=== PATIENT | female | born 1980 | race American Indian/Alaskan Native ===

== ENCOUNTER 2019-07-15 13:37 | Outpatient (CLI) | payer MEDICAID ==
--- NOTE | 2019-07-17 08:33 | Pulmonary Function Test ---
SPIROMETRY The spirometry, FVC 3.59 liters, which is 90% of the predicted. FEV1 is 2.94 liters, which is 92% of the predicted. FEV1/FVC ratio is 83. FLOW VOLUME LOOP: FEF 25-75% is 3.13 liters per second, which is 100% of the predicted. IMPRESSION: This is a normal pulmonary function test. JOB# [id number] [facility]
== END 2019-07-15 13:38 | disposition home or self-care (01) ==
LOC: PF 13:37
PROVIDERS: ATTEND Surgery
DX: E66.2 Morbid (severe) obesity with alveolar hypoventilation (principal)
CPT/HCPCS: 94010

== ENCOUNTER 2019-09-05 11:16 | Outpatient (CLI) | payer MEDICAID ==
[2019-09-05 11:37] LABS: Basophils # (Auto) 0.1 K/mm3 (0.0-0.1); Basophils % (Auto) 0.9 % (0.0-1.8); Eosinophils # (Auto) 0.1 K/mm3 (0.0-0.4); Eosinophils % (Auto) 1.9 % (0.0-4.3); Hematocrit 43.5 % (30.3-42.9); Hemoglobin 14.1 gm/dl (10.1-14.3); Lymphocytes # (Auto) 2.4 K/mm3 (1.2-5.4); Mean Corpuscular HGB Conc 33 % (30-34); Mean Corpuscular Volume 82 fl (79-97); Monocytes # (Auto) 0.7 K/mm3 (0.0-0.8); Monocytes % (Auto) 10.9 % (0.0-7.3); Platelet Count 191 K/mm3 (140-440); Red Blood Count 5.29 M/mm3 (3.65-5.03); Red Cell Distribution Width 14.2 % (13.2-15.2)
[2019-09-05 12:00] LABS: Alanine Aminotransferase 19 units/L (7-56); BUN/Creatinine Ratio 20; Blood Urea Nitrogen 16 mg/dL (7-17); Calcium 8.9 mg/dL (8.4-10.2); Hemolysis Index 1; LDL Cholesterol,Direct 91 mg/dL (50-130)
[2019-09-05 12:20] LABS: Chol/HDL Ratio 3.27 %; HDL Cholesterol 40 mg/dL (40-59)
== END 2019-09-05 11:17 | disposition home or self-care (01) ==
LOC: LAB 11:16
PROVIDERS: ATTEND Surgery
DX: Z00.00 Encounter for general adult medical examination without abnormal findings (principal); D50.9 Iron deficiency anemia, unspecified; K30 Functional dyspepsia; E61.8 Deficiency of other specified nutrient elements
CPT/HCPCS: 36415; 80053; 80061; 82607; 83036; 84443; 85025

== ENCOUNTER → 2019-11-05 | Outpatient (CLI) | payer MEDICAID | END | disposition home or self-care (01) | LOC: SLR 11:00 | PROVIDERS: ATTEND Otolaryngology | DX: G47.33 Obstructive sleep apnea (adult) (pediatric) (principal) | CPT/HCPCS: G0399 ==

== ENCOUNTER 2019-11-15 07:25 | Day surgery (SDC) | payer MEDICAID ==
[~2019-11-15 07:25] MED LIST: SODIUM CHLORIDE 0.9% 1000 ML 1,000 ML IV SCH
--- NOTE | 2019-11-15 07:55 | Anesthesia Day of Surgery ---
Anesthesia Day of Surgery - Day of Surgery Patient Examined: Yes Patient H&P Reviewed: Yes Patient is NPO: Yes Beta Blockers: No
--- NOTE | 2019-11-15 07:55 | Anesthesia Consultation ---
Anesthesia Consult and Med Hx Date of service: 11/15/19 - Airway Anesthetic Teeth Evaluation: Good ROM Head & Neck: Adequate Mental/Hyoid Distance: Adequate Mallampati Class: Class III Intubation Access Assessment: Possibly Difficult - Pre-Operative Health Status ASA Pre-Surgery Classification: ASA3 Proposed Anesthetic Plan: MAC - Pulmonary Hx Smoking: Yes Hx Sleep Apnea: Yes (on CPAP) - Cardiovascular System Hx Hypertension: Yes Hx Coronary Artery Disease: No Hx Heart Attack/AMI: No Hx Angina: No Hx Percutaneous Transluminal Coronary Angioplasty (PTCA): No Hx Cardia Arrhythmia: No Hx Pacemaker: No Hx Internal Defibrillator: No Hx Valvular Heart Disease: No Hx Heart Murmur: No Hx Peripheral Vascular Disease: No - Central Nervous System Hx Neuromuscular Disorder: No Hx Seizures: No CVA: No Hx Back Pain: No Hx Psychiatric Problems: No - Gastrointestinal Hx Ulcer: No Hx Gastroesophageal Reflux Disease: No - Endocrine Hx Renal Disease: No Hx End Stage Renal Disease: No Hx Cirrhosis: No Hx Liver Disease: No Hx Insulin Dependent Diabetes: No Hx Non-Insulin Dependent Diabetes: No Hx Thyroid Disease: No Hx Hypothyroidism: No Hx Hyperthyroidism: No - Hematic Hx Anemia: No Hx Sickle Cell Disease: No - Other Systems Hx Alcohol Use: Yes Hx Substance Use: No Hx Cancer: No Hx Obesity: Yes
--- NOTE | 2019-11-15 08:23 | Discharge Summary ---
Providers - Providers Date of Admission: 11/15/19 Date of discharge: 11/15/19 Attending physician: JOE ZAVALA MD Primary care physician: FORMING MACHINE OPERATOR Hospitalization Reason for admission: egd Condition: Good Procedures: egd Hospital course: pt had an uneventful egd as part of a pre-op work for bariatric surgery Disposition: DC-01 TO HOME OR SELFCARE Core Measure Documentation - Palliative Care Palliative Care/ Comfort Measures: Not Applicable - Core Measures Any of the following diagnoses?: none Exam - Physical Exam Narrative exam: unchanged from pre-op - Constitutional Vitals: Temp Pulse Resp BP Pulse Ox 97.8 F 65 12 134/87 99 11/15/19 07:58 11/15/19 07:58 11/15/19 07:58 11/15/19 07:58 11/15/19 07:58 Plan Activity: no restrictions Weight Bearing Status: Full Weight Bearing Diet: low carbohydrate Follow up with: BROOKE ROBLES MD [Primary Care Provider] - 7 Days
--- NOTE | 2019-11-15 08:25 | Operative Report ---
Operative Report Operative Report: DATE 11/15/2019 SURGERY: Upper endoscopy with antral biopsy SURGEON: Regan Wang M.D. ULTRASONIC TESTER: n/a PRE OP DX: GERD, morbid obesity POST OP DX: same as pre-op TYPE OF ANESTHESIA: MAC. ESTIMATED BLOOD LOSS: None. COMPLICATIONS: None. SPECIMENS REMOVED: antral mucosal biopsy FINDINGS: 1. Small hiatal hernia. 2. Otherwise, normal esophagus, stomach and first portion of duodenum. INDICATIONS:INDICATION FOR PROCEDURE: Patient is a 39-year-old female with a long history of morbid obesity. She is planned to have a weight loss procedure and is here for preoperative planning EGD. PROCEDURE DETAILS: After consent was reviewed, patient was taken back to the operating room where patient was placed in the left lateral decubitus position and a bite block was placed in the mouth. After a time-out was called, MAC anesthesia was initiated. I then passed the endoscope into her oropharynx, into her esophagus, visualized the entire esophagus, which was all within normal limits. Her Z-line was noted to be regular and about 40cm from the incisors. I then visualized the stomach and the first portion of the duodenum and there were no abnormalities I could clearly visualize. I then retroflexed the scope in the stomach and visualized the hiatus and I could see a small hiatal hernia. A cold biopsy was taken of the antral mucosa to evaluate for h.pylori for comprehensive pre-op for bariatric surgery. I then desufflated the stomach and removed the endoscope. Patient tolerated procedure well and was transferred to recovery room in good and stable condition.
[2019-11-15] MEDS ORDERED: PROPOFOL 200 MG/20 ML VIAL IV ONE (08:30)
--- NOTE | 2019-11-15 08:56 | Post Anesthesia Evaluation ---
- Post Anesthesia Evaluation Patient Participated: Yes Airway Patent: Yes Stable Respiratory Function: Yes Temp > 96.8F: Yes Pain Manageable: Yes Adequeate Hydration: Yes Anesthesia Complications: No
[2019-11-15] MEDS ORDERED: FAMOTIDINE 20 MG/2 ML INJ IV NR (09:00)
[2019-11-15] MEDS ORDERED: LIDOCAINE MPF (2%) 20 MG/1 ML VIAL 5 ML ONE (09:00)
[2019-11-15 09:06] VITALS: BP 124/93
== END 2019-11-15 07:26 | disposition home or self-care (01) ==
LOC: GIO 07:25
PROVIDERS: ATTEND Surgery
DX: K21.9 Gastro-esophageal reflux disease without esophagitis (principal); K44.9 Diaphragmatic hernia without obstruction or gangrene; K29.50 Unspecified chronic gastritis without bleeding; E66.01 Morbid (severe) obesity due to excess calories; B96.81 Helicobacter pylori [H. pylori] as the cause of diseases classified elsewhere; I10 Essential (primary) hypertension; G47.30 Sleep apnea, unspecified; F17.210 Nicotine dependence, cigarettes, uncomplicated; Z72.89 Other problems related to lifestyle; Z68.41 Body mass index [BMI] 40.0-44.9, adult; Z79.899 Other long term (current) drug therapy
CPT/HCPCS: 43239; 81025; 88305; 88342; J2704; J7030

== ENCOUNTER 2019-12-10 11:00 | Outpatient (CLI) | payer MEDICAID | END 2019-12-10 11:01 | disposition home or self-care (01) | LOC: SLR 11:00 | PROVIDERS: ATTEND Otolaryngology | DX: G47.33 Obstructive sleep apnea (adult) (pediatric) (principal); R40.0 Somnolence | CPT/HCPCS: 95811 ==

== ENCOUNTER 2020-01-13 05:44 | Observation (INO) | payer MEDICAID ==
[2020-01-10 10:05] LABS: Basophils % (Auto) 0.9 % (0.0-1.8); Eosinophils # (Auto) 0.1 K/mm3 (0.0-0.4); Eosinophils % (Auto) 1.2 % (0.0-4.3); Hemoglobin 14.1 gm/dl (10.1-14.3); Lymphocytes # (Auto) 1.8 K/mm3 (1.2-5.4); Lymphocytes % (Auto) 32.3 % (13.4-35.0); Mean Corpuscular HGB Conc 33 % (30-34); Mean Corpuscular Volume 82 fl (79-97); Monocytes # (Auto) 0.5 K/mm3 (0.0-0.8); Monocytes % (Auto) 8.8 % (0.0-7.3); Platelet Count 221 K/mm3 (140-440); Red Blood Count 5.23 M/mm3 (3.65-5.03)
--- NOTE | 2020-01-10 10:25 | Anesthesia Consultation ---
Anesthesia Consult and Med Hx Date of service: 01/13/20 - Airway Anesthetic Teeth Evaluation: Good (Missing) ROM Head & Neck: Adequate Mental/Hyoid Distance: Adequate Mallampati Class: Class II Intubation Access Assessment: Probably Good - Pre-Operative Health Status ASA Pre-Surgery Classification: ASA3 Proposed Anesthetic Plan: General - Pulmonary Hx Smoking: Yes (BLACK AND MILDS SINCE AGE 13; QUIT 11/2019) Hx Sleep Apnea: Yes (+CPAP. States she can climb 2FS. PFTs [phone] mt) - Cardiovascular System Hx Hypertension: Yes (SINCE AGE 26. ETT [id number]) Hx Cardia Arrhythmia: No - Central Nervous System Hx Neuromuscular Disorder: No Hx Seizures: No CVA: No Hx Back Pain: No Hx Psychiatric Problems: No - Gastrointestinal Hx Gastroesophageal Reflux Disease: Yes - Endocrine Hx Renal Disease: No Hx End Stage Renal Disease: No Hx Liver Disease: No Hx Insulin Dependent Diabetes: No Hx Non-Insulin Dependent Diabetes: Yes (Borderline) Hx Thyroid Disease: No Hx Hypothyroidism: No Hx Hyperthyroidism: No - Hematic Hx Anemia: No Hx Sickle Cell Disease: No - Other Systems Hx Alcohol Use: Yes (SOCIAL; STOPPED FOR WT LOSS JOURNEY) Hx Substance Use: No Hx Cancer: No Hx Obesity: Yes (BMI 41)
[2020-01-10 10:37] LABS: Alanine Aminotransferase 16 units/L (7-56); Albumin 3.9 g/dL (3.9-5); BUN/Creatinine Ratio 23; Blood Urea Nitrogen 16 mg/dL (7-17); Calcium 8.8 mg/dL (8.4-10.2); Hemolysis Index 7
[2020-01-13] MEDS ORDERED: MIDAZOLAM 2 MG/2 ML INJ IV NR (06:00)
[2020-01-13] MEDS ORDERED: LACTATED RINGERS 1,000 ML IV SCH ×2 (06:00→11:00)
[2020-01-13] MEDS ORDERED: GABAPENTIN 300 MG CAP PO NR (06:00)
[2020-01-13] MEDS ORDERED: MAGNESIUM OXIDE 400 MG TAB PO NR (06:00)
[2020-01-13] MEDS ORDERED: SCOPOLAMINE TRANSDERMAL PATCH 72 HR TD NR (06:00)
[2020-01-13] MEDS ORDERED: ACETAMINOPHEN 500 MG TAB PO NR (06:00)
[2020-01-13] MEDS ORDERED: CELECOXIB 200 MG CAP PO NR (06:00)
[2020-01-13] MEDS ORDERED: ceFAZolin/STERILE WATER 2 GM/20 ML SYRINGE IV NR (07:00)
[2020-01-13] MEDS ORDERED: ROCURONIUM 50 MG/5 ML INJ IV ONE ×2 (07:37→09:41)
[2020-01-13] MEDS ORDERED: dexAMETHasone 20 MG/5 ML VIAL ONE (07:37)
[2020-01-13] MEDS ORDERED: LIDOCAINE MPF (2%) 20 MG/1 ML VIAL 5 ML ONE (07:37)
[2020-01-13] MEDS ORDERED: ONDANSETRON 4 MG/2 ML INJ ONE (07:37)
[2020-01-13] MEDS ORDERED: HYDROmorphone 1 MG/1 ML INJ ONE ×2 (07:37→10:05)
[2020-01-13] MEDS ORDERED: propofoL 200 MG/20 ML VIAL IV ONE (07:38)
[2020-01-13] MEDS ORDERED: fentaNYL 100 MCG/2 ML INJ IV PRN (07:42)
[2020-01-13] MEDS ORDERED: LIDOCAINE 1%/EPINEPHRINE 1:100,000 VIAL (20 ML) INFILTRATI ONE (07:42)
[2020-01-13] MEDS ORDERED: BUPIVACAINE-EPINEPHRINE/PF 0.5%-1:200,000 (30 ML) VIAL INFILTRATI ONE ×2 (07:42→09:28)
--- NOTE | 2020-01-13 07:42 | Anesthesia Day of Surgery ---
Anesthesia Day of Surgery - Day of Surgery Patient Examined: Yes Patient H&P Reviewed: Yes Patient is NPO: Yes
[2020-01-13] MEDS ORDERED: ENOXAPARIN 40 MG/0.4 ML INJ SUB-Q NR (08:00)
[2020-01-13] MEDS ORDERED: metroNIDAZOLE/NS 500 MG/100 ML 500 MG/100 ML BAG IV NR (08:00)
[2020-01-13] MEDS ORDERED: LIDOCAINE (1%) 10 MG/1 ML VIAL 20 ML MDV ONE (08:29)
[2020-01-13] MEDS ORDERED: MINERAL OIL Light (Sterile) 10 ML VIAL TP ONE (08:43)
[2020-01-13] MEDS ORDERED: LIDOCAINE (1%) 10 MG/1 ML VIAL 20 ML MDV INFILTRATI ONE (09:29)
[2020-01-13] MEDS ORDERED: SODIUM CHLORIDE 0.9% IRR 1,500 ML BOTTLE IR ONE (09:30)
[2020-01-13] MEDS ORDERED: GLYCOPYRROLATE 0.4 MG/2 ML INJ ONE (09:40)
[2020-01-13] MEDS ORDERED: NEOSTIGMINE 10MG/10 ML INJ MDV ONE (09:40)
[2020-01-13] MEDS ORDERED: MEPERIDINE 25 MG/1 ML INJ ONE (10:05)
[2020-01-13] MEDS ORDERED: MEPERIDINE 25 MG/1 ML INJ IV PRN (10:15)
[2020-01-13] MEDS ORDERED: HYDROmorphone 1 MG/1 ML INJ IV PRN (10:15)
[2020-01-13] MEDS ORDERED: hydrALAZINE 20 MG/1 ML INJ IV ONE (10:16)
[2020-01-13] MEDS ORDERED: hydrALAZINE 20 MG/1 ML INJ IV PRN (10:17)
[2020-01-13] MEDS ORDERED: SIMETHICONE 80 MG CHEW TAB PO PRN (10:17)
[2020-01-13] MEDS ORDERED: MORPHINE 2 MG/1 ML INJ IV PRN (10:17)
[2020-01-13] MEDS ORDERED: METOCLOPRAMIDE 10 MG/2 ML INJ IV PRN (10:17)
[2020-01-13] MEDS ORDERED: ONDANSETRON 4 MG/2 ML INJ IV PRN (10:17)
[2020-01-13] MEDS: KETOROLAC 30 MG/1 ML INJ IV SCH ×3 (10:49→22:35)
--- NOTE | 2020-01-13 10:50 | Operative Report ---
Operative Report Operative Report: DATE: 01/13/2020 SURGEON: JOE ZAVALA MD [facility] ATTENDANT SURGEON: ISAAC VELAZCO MD PROCEDURE: LAPAROSCOPIC SLEEVE GASTRECTOMY ANESTHESIA: GETA PRE-OP DX: MORBID OBESITY POST-OP DX: SAME PRE-OP EBL: <10ML INDICATIONS: 39 YEAR OLD FEMALE WITH A HX OF MORBID OBESITY BMI 41, HYPERTENSION, AND PRE-DIABETES. SHE IS HERE TODAY FOR LAPAROSCOPIC SLEEVE GASTRECTOMY FOR WEIGHT LOSS. SHE HAS COMPLETE PRE-OPERATIVE NUTRITIONAL COUNSELING FOR 6 MONTHS AND OTHER MEDICAL CLEARANCES. SHE SIGNED INFORMED CONSENT AND EXPRESSED UNDERSTANDING OF THE RISKS AND BENEFITS. DETAILS OF PROCEDURE: PT WAS BROUGHT INTO THE OR AND LAID IN SUPINE POSITION. BILATERAL LOWER EXTREMITY SCD WERE PLACED AND GENERAL ANESTHESIA WAS PLACED WITH SUCCESSFUL ENDOTRACHEAL INTUBATION. PT WAS SECURED TO THE TABLE WITH A FOOT BOARD WITH HER ARMS AT HER SIDE. HER ABDOMEN WAS PREPPED AND DRAPED IN STERILE FASHION. AFTER A TIME OUT WAS PERFORMED, A VERESS NEEDED WAS PLACED VIA THE UMBILICUS TO INSUFLATE THE ABDOMEN TO A PRESSURE OF 15MMGH. USING OPTIVIEW TECHNIQUE, A 5MM TROCAR WAS PLACE SUPERIOR TO THE UMBILICUS. THERE WAS NO GROSS INJURY TO ANY INTRA-ABDOMINAL STRUCTURES. FOUR WORKING TROCARS WERE PLACED UNDER DIRECT VISUALIZATION. 5MM TROCARS IN THE EPIGASTRIC, RUQ, LUQ AREAS, AND A 15MM TROCAR IN THE RIGHT MID ABDOMEN. A LIVER RETRACTOR WAS PLACED VIA THE EPIGASTRIC PORT AND USED TO ELEVATE THE LEFT LATERAL LOBE OF THE LIVER TO VISUALIZE THE HIATUS. SHE WAS PLACED IN STEEP REVERSE TR[place]DELEN[place]G. THERE WAS NO VISUAL HIATAL HERNIA WARRANTING REPAIR AT THIS TIME. THE ANTERIOR GASTRIC FAT PAD WAS DISSECTED FREE. THE SHORT GASTRIC VESSELS WERE TRANSECTED WITH A LIGASURE DEVICE STARTING AT ABOUT 6CM PROXIMAL TO THE PYLORUS. THESE VESSELS WERE TAKEN ALL THE WAY UP TO THE LEFT JUSTINO OF THE HIATUS FULLY MOBILIZING THE GREATER CURVE OF THE STOMACH. ANESTHESIA CAREFULLY PASSED A 40FR BOUGIE DOWN THE LESSER CURVE OF THE STOMACH TO ACT A STENT. USING SERIAL FIRINGS OF THE LAPAROSCOPIC STAPLER, GOLD FOLLOWED BY BLUE LOADS, THE MAJORITY OF THE LATERAL STOMACH WAS REMOVED BEING CAREFUL TO GET NO CLOSER THAN 2CM TO THE INCISURA, AND LEAVING ABOUT 1.5CM STOMACH LATERAL TO THE GE JUNCTION. THE BOUGIE WAS REMOVED AND THE STAPLE LINE WAS OBSERVED FOR BLEEDING FOR ABOUT 5-6 MINUTES WHILE THE PRESSURE WAS REDUCED TO 10MM TO ELICIT AND VISUALIZE ANY PRESSURE SUPPRESSED BLEEDING AT THE STAPLE LINE. THERE WAS PINPOINT BLEEDING IN A FEW AREAS THAT WERE EASILY CONTROLLED WITH A FEW CLIPS. TISEEL WAS PLACED ALONG THE ENTIRE LENGTH OF THE STABLE LINE. FEELING THAT HEMOSTASIS WAS ADEQUATE, THE LIVER RETRACTOR WAS REMOVED AND THE REMNANT STOMACH WAS REMOVED FROM THE ABDOMEN FROM THE 15MM TROCAR. THE FASCIAL LAYER OF THE 15MM TROCAR WAS CLOSED WITH A PDS USING A SUTURE PASSER DEVICE. THE TROCARS WERE REMOVED AND THE ABDOMEN WAS DESUFLATTED. THE SKIN INCISIONS WERE CLOSED WITH 4-O MONOCRYL FOLLOWED BY DERMABOND. PT WAS AWOKEN, EXTUBATED, AND TAKEN TO RECOVERY IN STABLE CONDITION. ALL COUNTS WERE CORRECT. COMPLICATIONS: NONE IMMEDIATE SPECIMEN: GASTRIC REMNANT
[2020-01-13] MEDS ORDERED: ceFAZolin/NS 1 GM/50 ML 1 GM/50 ML BAG IV SCH (11:00)
--- NOTE | 2020-01-13 12:51 | Post Anesthesia Evaluation ---
- Post Anesthesia Evaluation Patient Participated: Yes Airway Patent: Yes Stable Respiratory Function: Yes Nausea/Vomiting: No Temp > 96.8F: Yes Pain Manageable: Yes Adequeate Hydration: Yes Anesthesia Complications: No
[2020-01-13] MEDS: HYDROmorphone 1 MG/1 ML INJ IV PRN ×2 (14:26→19:25)
[2020-01-13] MEDS: metroNIDAZOLE/NS 500 MG/100 ML 500 MG/100 ML BAG IV SCH ×2 (14:36→22:28)
[2020-01-13] MEDS: ceFAZolin/NS 1 GM/50 ML 1 GM/50 ML BAG IV SCH ×2 (17:34→23:34)
[2020-01-13] MEDS: HYDROcodone/APAP 7.5-325MG-15ML ORAL LIQD PO PRN (22:30)
[2020-01-14] MEDS: HYDROcodone/APAP 7.5-325MG-15ML ORAL LIQD PO PRN (04:12)
[2020-01-14] MEDS ORDERED: diphenhydrAMINE 50 MG/ML VIAL IV PRN (05:19)
[2020-01-14] MEDS: metroNIDAZOLE/NS 500 MG/100 ML 500 MG/100 ML BAG IV SCH (05:29)
[2020-01-14] MEDS: KETOROLAC 30 MG/1 ML INJ IV SCH (05:33)
[2020-01-14 06:59] LABS: Basophils % (Auto) 0.2 % (0.0-1.8); Hemoglobin 12.6 gm/dl (10.1-14.3); Lymphocytes # (Auto) 1.7 K/mm3 (1.2-5.4); Lymphocytes % (Auto) 16.3 % (13.4-35.0); Mean Corpuscular HGB Conc 33 % (30-34); Mean Corpuscular Volume 81 fl (79-97); Monocytes # (Auto) 0.9 K/mm3 (0.0-0.8); Monocytes % (Auto) 8.9 % (0.0-7.3); Platelet Count 211 K/mm3 (140-440); Red Blood Count 4.68 M/mm3 (3.65-5.03); Red Cell Distribution Width 13.9 % (13.2-15.2)
[2020-01-14 08:15] VITALS: BP 121/72
[2020-01-14] MEDS ORDERED: ENOXAPARIN 40 MG/0.4 ML INJ SUB-Q SCH (10:00)
--- NOTE | 2020-01-14 10:30 | Discharge Summary ---
Providers - Providers Date of Admission: 01/13/20 10:17 Date of discharge: 01/14/20 Attending physician: JOE ZAVALA MD 01/13/20 10:17 Physical Therapy Evaluation and Treat [CONS] Routine Comment: Reason For Exam: s/p bariatric surgery, please eval for mobility Primary care physician: FINESSE PRUETT NP Hospitalization Reason for admission: lap sleeve gastrectomy Condition: Good Procedures: lap sleeve gastrectomy Hospital course: Pt had an uneventful laparoscopic sleeve gastrectomy. she tolerated the procedure well and remained afebrile, and tolerated liquids. She was ambulating and showed no clinical signs of leak or bleeding. She was discharged to home and will follow up in the office in two weeks. Disposition: TO HOME OR SELFCARE Core Measure Documentation - Palliative Care Palliative Care/ Comfort Measures: Not Applicable - Core Measures Any of the following diagnoses?: none Exam - Constitutional Vitals: Temp Pulse Resp BP Pulse Ox 98.6 F 66 19 121/72 98 01/14/20 07:50 01/14/20 07:50 01/14/20 07:50 01/14/20 07:50 01/14/20 07:50 General appearance: Present: no acute distress - Respiratory Respiratory effort: normal - Cardiovascular Heart Sounds: Present: S1 & S2 - Extremities Extremities: no ischemia - Abdominal General gastrointestinal: Present: soft, non-tender, other (incisions c/d/i) - Psychiatric Psychiatric: appropriate mood/affect Plan Activity: advance as tolerated Weight Bearing Status: Full Weight Bearing Diet: clear liquids Follow up with: FINESSE PRUETT NP [Primary Care Provider] - 7 Days
== END 2020-01-14 13:00 | disposition home or self-care (01) ==
LOC: OR 05:44 → EDSTATUS 08:00 → 3B-SURG 10:17 → INTOOBSV 10:17
PROVIDERS: ADMIT Surgery; ATTEND Surgery
DX: E66.01 Morbid (severe) obesity due to excess calories (principal); Z68.41 Body mass index [BMI] 40.0-44.9, adult
CPT/HCPCS: 36415; 43775; 80053; 82962; 84703; 85025; 88307; 93005; 93010; 94760; 96365; 96366; 96367; 96372; 96375; 96376; 97161; C9250; G0378; J0690; J1100; J1170; J1200; J1650; J1885; J2175; J2250; J2405; J2704; J2710; J7120

== ENCOUNTER 2020-01-20 10:00 | Emergency (ER) | payer MEDICAID ==
[2020-01-20 17:53] VITALS: BP 154/102
== END 2020-01-20 10:02 | disposition left against medical advice (07) ==
LOC: ED 10:00
DX: R07.9 Chest pain, unspecified (principal); Z53.21 Procedure and treatment not carried out due to patient leaving prior to being seen by health care provider

== ENCOUNTER 2020-09-08 15:24 | Outpatient (CLI) | payer MEDICAID ==
[2020-09-08 15:49] LABS: Lymphocytes # (Auto) 1.7 K/mm3 (1.2-5.4); Monocytes # (Auto) 0.6 K/mm3 (0.0-0.8)
[2020-09-08 15:59] LABS: Basophils % (Auto) 0.8 % (0.0-1.8); Eosinophils % (Auto) 1.1 % (0.0-4.3); Hematocrit 43.4 % (30.3-42.9); Hemoglobin 14.5 gm/dl (10.1-14.3); Lymphocytes % (Auto) 40.8 % (13.4-35.0); Mean Corpuscular HGB Conc 33 % (30-34); Mean Corpuscular Volume 85 fl (79-97); Monocytes % (Auto) 13.7 % (0.0-7.3); Platelet Count 202 K/mm3 (140-440); Red Blood Count 5.13 M/mm3 (3.65-5.03); Red Cell Distribution Width 13.5 % (13.2-15.2)
[2020-09-08 16:10] LABS: % Iron Saturation 13.87 %; Alanine Aminotransferase 43 units/L (7-56); Albumin 4.1 g/dL (3.9-5); BUN/Creatinine Ratio 20; Blood Urea Nitrogen 20 mg/dL (7-17); Calcium 9.6 mg/dL (8.4-10.2); Chol/HDL Ratio 2.79 %; HDL Cholesterol 68 mg/dL (40-59); Hemolysis Index 5; Iron 33 ug/dL (37-170); LDL Cholesterol,Direct 114 mg/dL (50-130); Total Iron Binding Capacity 238 mcg/dL (250-450)
== END 2020-09-08 15:25 | disposition home or self-care (01) ==
LOC: LAB 15:24
PROVIDERS: ATTEND Surgery
DX: E66.01 Morbid (severe) obesity due to excess calories (principal); Z98.84 Bariatric surgery status
CPT/HCPCS: 36415; 80053; 80061; 82306; 82607; 82728; 83036; 83550; 84425; 84443; 85025

== ENCOUNTER 2021-01-13 15:51 | Outpatient (CLI) | payer MEDICAID ==
[2021-01-13 16:13] LABS: Basophils % (Auto) 0.6 % (0.0-1.8); Eosinophils # (Auto) 0.1 K/mm3 (0.0-0.4); Eosinophils % (Auto) 1.5 % (0.0-4.3); Hematocrit 42.9 % (30.3-42.9); Hemoglobin 14.3 gm/dl (10.1-14.3); Lymphocytes # (Auto) 2.1 K/mm3 (1.2-5.4); Lymphocytes % (Auto) 41.6 % (13.4-35.0); Mean Corpuscular HGB Conc 33 % (30-34); Mean Corpuscular Volume 85 fl (79-97); Monocytes # (Auto) 0.6 K/mm3 (0.0-0.8); Monocytes % (Auto) 11.5 % (0.0-7.3); Platelet Count 199 K/mm3 (140-440); Red Blood Count 5.04 M/mm3 (3.65-5.03); Red Cell Distribution Width 13.6 % (13.2-15.2)
[2021-01-13 16:50] LABS: Alanine Aminotransferase 10 units/L (7-56); Albumin 3.9 g/dL (3.9-5); BUN/Creatinine Ratio 22; Blood Urea Nitrogen 20 mg/dL (7-17); Calcium 8.6 mg/dL (8.4-10.2); Chol/HDL Ratio 2.92 %; HDL Cholesterol 51 mg/dL (40-59); Hemolysis Index 6; Iron 38 ug/dL (37-170); LDL Cholesterol,Direct 96 mg/dL (50-130); Total Iron Binding Capacity 242 mcg/dL (250-450)
== END 2021-01-13 15:52 | disposition home or self-care (01) ==
LOC: LAB 15:51
PROVIDERS: ATTEND Surgery
DX: E11.9 Type 2 diabetes mellitus without complications (principal); E66.01 Morbid (severe) obesity due to excess calories; K30 Functional dyspepsia; Z98.84 Bariatric surgery status
CPT/HCPCS: 36415; 80053; 80061; 82306; 82607; 82728; 83036; 83550; 84425; 84443; 85025

== ENCOUNTER 2022-02-01 08:51 | Outpatient (CLI) | payer MEDICAID ==
[2022-02-04 13:13] LABS: Vitamin D, 25-OH, D2 <4 ng/mL
== END 2022-02-01 08:52 | disposition home or self-care (01) ==
LOC: LAB 08:51
PROVIDERS: ATTEND Surgery
DX: Z13.29 Encounter for screening for other suspected endocrine disorder (principal); Z13.21 Encounter for screening for nutritional disorder; E55.9 Vitamin D deficiency, unspecified; K90.9 Intestinal malabsorption, unspecified; K30 Functional dyspepsia; E66.01 Morbid (severe) obesity due to excess calories; Z98.84 Bariatric surgery status
CPT/HCPCS: 36415; 82306; 84425